=== PATIENT | female | born 1970 | race Hispanic/Latino ===

== ENCOUNTER 2020-04-27 23:42 | Emergency (ER) | payer OTHER ==
[2020-04-28] MEDS ORDERED: LORAZEPAM 1 MG TABLET ONE (00:19)
[2020-04-28 00:26] LABS: APPEARANCE,URINE Clear (CLEAR); BILIRUBIN,URINE Negative (NEGATIVE); COLOR,URINE Yellow (YELLOW); GLUCOSE, URINE (UA) Negative (NEGATIVE); KETONES,URINE Negative (NEGATIVE); LEUKOCYTE ESTERASE ,URINE Moderate (NEGATIVE); NITRATE,URINE Negative (NEGATIVE); OCCULT BLOOD,URINE Trace (NEGATIVE); PH,URINE 5.5 (5.0-8.0); PROTEIN,URINE Negative (NEGATIVE); UROBILINOGEN,URINE 0.2 mg/dL (0.2-1.0)
[2020-04-28 00:29] LABS: BASOPHILS % (AUTO) 0.4 % (0.0-5.0); EOSINOPHILS % (AUTO) 1.2 % (0.0-8.0); HEMATOCRIT 39.7 % (36-48); LYMPHOCYTES % (AUTO) 30.9 % (21.0-51.0); MEAN CORPUSCULAR HEMOGLOBIN 29.3 pg (27.0-33.0); MEAN CORPUSCULAR HGB CONC 33.2 g/dL (32.0-36.0); MEAN CORPUSCULAR VOLUME 88.2 fL (79-99); MONOCYTES % (AUTO) 9.5 % (3.0-13.0); NEUTROPHILS % (AUTO) 57.7 % (40.0-77.0); PLATELET COUNT (AUTO) 259 K/uL (130-400); RED CELL DISTRIBUTION WIDTH 13.4 % (11.0-15.5); WHITE BLOOD COUNT (AUTO) 7.4 K/uL (4.8-10.8)
[2020-04-28 00:40] LABS: CREATININE 0.8 mg/dL (0.5-1.5); POTASSIUM 3.2 mmol/L (3.5-5.1)
[2020-04-28 00:45] LABS: ALBUMIN 3.9 g/dL (3.5-5.0); BILIRUBIN,TOTAL 0.2 mg/dL (0.2-1.0)
[2020-04-28 01:00] LABS: BACTERIA,URINE None Seen /HPF (None Seen); MUCUS,URINE Few LPF (None Seen); RBC,URINE None Seen /HPF (0-1); SQUAMOUS EPITHELIAL CELL,UR Few /HPF (0-2)
== END 2020-04-28 01:49 | disposition home or self-care (01) ==
LOC: EDH 23:42
DX: I10 Essential (primary) hypertension (principal); F41.9 Anxiety disorder, unspecified
CPT/HCPCS: 36415; 80053; 81001; 85025; 87088; 93005

== ENCOUNTER 2020-11-13 16:55 | Inpatient (IN) | payer SELFPAY ==
[~2020-11-13] VITALS: Ht 157.5 cm; Wt 63.5 kg
[2020-11-13 17:43] LABS: APPEARANCE,URINE Clear (CLEAR); BILIRUBIN,URINE Negative (NEGATIVE); COLOR,URINE Yellow (YELLOW); GLUCOSE, URINE (UA) Negative (NEGATIVE); KETONES,URINE Negative (NEGATIVE); LEUKOCYTE ESTERASE ,URINE Trace (NEGATIVE); NITRATE,URINE Negative (NEGATIVE); OCCULT BLOOD,URINE Moderate (NEGATIVE); PH,URINE 6.5 (5.0-8.0); PROTEIN,URINE Negative (NEGATIVE); UROBILINOGEN,URINE 0.2 mg/dL (0.2-1.0)
[2020-11-13 17:57] LABS: WBC,URINE 0-1 /HPF (0-1)
[2020-11-13 17:58] LABS: BACTERIA,URINE Few /HPF (None Seen); MUCUS,URINE Rare LPF (None Seen); SQUAMOUS EPITHELIAL CELL,UR Few /HPF (0-2)
[2020-11-13] MEDS ORDERED: ACETAMINOPHEN 325 MG TAB ONE ×3 (18:07→22:07)
[2020-11-13 18:10] LABS: BASOPHILS % (AUTO) 0.2 % (0.0-5.0); HEMATOCRIT 38.6 % (36-48); MEAN CORPUSCULAR HEMOGLOBIN 29.5 pg (27.0-33.0); MEAN CORPUSCULAR HGB CONC 33.4 g/dL (32.0-36.0); MEAN CORPUSCULAR VOLUME 88.1 fL (79-99); MONOCYTES % (AUTO) 8.1 % (3.0-13.0); NEUTROPHILS % (AUTO) 87.2 % (40.0-77.0); PLATELET COUNT (AUTO) 278 K/uL (130-400); RED BLOOD CELL COUNT(AUTO) 4.38 MIL/uL (4.00-5.50); RED CELL DISTRIBUTION WIDTH 13.5 % (11.0-15.5); WHITE BLOOD COUNT (AUTO) 10.6 K/uL (4.8-10.8)
[2020-11-13] MEDS ORDERED: SODIUM CHLORIDE 0.9% 1000ML 2,000 ML IV ONE (18:17)
[2020-11-13 18:25] LABS: INR 1.07 (0.85-1.15); PROTHROMBIN TIME 11.6 SEC (9.6-11.6)
[2020-11-13 18:26] LABS: PARTIAL THROMBOPLASTIN TIME 28.8 SEC (26.3-35.5)
[2020-11-13 18:32] LABS: CARBON DIOXIDE 28 mmol/L (21-32); CHLORIDE 103 mmol/L (101-111); CREATININE 0.7 mg/dL (0.5-1.5); GLOMERULAR FILTR. RATE CALC 94 mL/min (>60); GLUCOSE,RANDOM 117 mg/dL (70-105); POTASSIUM 3.6 mmol/L (3.5-5.1); SODIUM SERUM 140 mmol/L (136-145); UREA NITROGEN, BLOOD 4 mg/dL (7-18)
[2020-11-13] MEDS ORDERED: SODIUM CHLORIDE 0.9% 50 ML IV ONE ×2 (18:32→21:38)
[2020-11-13] MEDS ORDERED: ZOSYN 3.375GM+NS 50ML 50 ML IV ONE ×2 (18:32→21:30)
[2020-11-13] MEDS ORDERED: IOHEXOL-350 75 ML VIAL IV ONE (18:38)
[2020-11-13 18:46] LABS: ALANINE AMINOTRANSFERASE 51 U/L (12-78); ASPARTATE AMINOTRANSFERASE 39 U/L (10-37); BILIRUBIN,TOTAL 0.4 mg/dL (0.2-1.0); CREATINE KINASE, TOTAL 22 U/L (21-232); MYOGLOBIN 13 ng/mL (10-92); TOTAL PROTEIN, SERUM 8.3 g/dL (6.0-8.3); TROPONIN I < 0.04 ng/mL (0.00-0.06)
[2020-11-13] MEDS ORDERED: DIPHENHYDRAMINE HCL 25 MG CAPSULE PO PRN (20:45)
[2020-11-13] MEDS ORDERED: LACTULOSE 20 GM/30 ML UDCUP PO PRN (20:45)
[2020-11-13] MEDS ORDERED: MAG HYDROX/AL HYDROX/SIMETH ES 30 ML SUSP UDCUP PO PRN (20:45)
[2020-11-13] MEDS ORDERED: GUAIFENESIN-DM 200/20 MG 10 ML PO PRN (20:45)
[2020-11-13] MEDS: LACTATED RINGERS 1000ML 1,000 ML IV SCH (20:45)
[2020-11-13] MEDS: ZOSYN 3.375GM+NS 50ML 50 ML IV SCH (21:00)
[2020-11-13] MEDS: FAMOTIDINE/PF 20 MG/2 ML VIAL IV SCH (21:00)
[2020-11-13] MEDS ORDERED: FAMOTIDINE/PF 20 MG/2 ML VIAL IV ONE (21:31)
[2020-11-13] MEDS ORDERED: DEXTROSE 5 % AND 0.9 % NACL 1,000 ML IV ONE (21:36)
[2020-11-13] MEDS ORDERED: IBUPROFEN 800 MG TAB ONE (23:50)
[2020-11-14] VITALS (7 sets, daily range): BP systolic 89–111; BP diastolic 54–69
[2020-11-14] MEDS ORDERED: ZOSYN 3.375GM+NS 50ML 50 ML IV ONE (01:01)
[2020-11-14] MEDS ORDERED: SODIUM CHLORIDE 0.9% 50 ML IV ONE (01:02)
[2020-11-14] MEDS: ZOSYN 3.375GM+NS 50ML 50 ML IV SCH ×3 (06:20→22:03)
[2020-11-14] MEDS: FAMOTIDINE/PF 20 MG/2 ML VIAL IV SCH ×2 (09:29→20:51)
[2020-11-14] MEDS: LACTATED RINGERS 1000ML 1,000 ML IV SCH ×3 (09:30→22:03)
[2020-11-14] MEDS: ENOXAPARIN SODIUM 40 MG/0.4 ML SYRINGE SQ SCH (09:30)
[2020-11-14] MEDS: ACETAMINOPHEN 325 MG TAB PO PRN ×2 (10:47→19:14)
[2020-11-14] MEDS: MORPHINE SULFATE 2 MG/ML 1ML SYG IV PRN ×2 (15:45→22:06)
[2020-11-14 16:04] LABS: BASOPHILS % (AUTO) 0.2 % (0.0-5.0); HEMATOCRIT 37.6 % (36-48); LYMPHOCYTES % (AUTO) 3.5 % (21.0-51.0); MEAN CORPUSCULAR HEMOGLOBIN 28.6 pg (27.0-33.0); MEAN CORPUSCULAR HGB CONC 32.4 g/dL (32.0-36.0); MEAN CORPUSCULAR VOLUME 88.3 fL (79-99); MONOCYTES % (AUTO) 3.4 % (3.0-13.0); NEUTROPHILS % (AUTO) 90.5 % (40.0-77.0); PLATELET COUNT (AUTO) 265 K/uL (130-400); RED BLOOD CELL COUNT(AUTO) 4.26 MIL/uL (4.00-5.50); RED CELL DISTRIBUTION WIDTH 13.9 % (11.0-15.5)
[2020-11-14 16:24] LABS: ALBUMIN 2.7 g/dL (3.5-5.0); BILIRUBIN,TOTAL 0.5 mg/dL (0.2-1.0); CREATININE 0.8 mg/dL (0.5-1.5); POTASSIUM 3.2 mmol/L (3.5-5.1); TOTAL PROTEIN, SERUM 7.4 g/dL (6.0-8.3)
[2020-11-14] MEDS ORDERED: MAGNESIUM CITRATE 296 ML SOLUTION PO ONE (17:05)
[2020-11-14] MEDS ORDERED: VANCOMYCIN PROTOCOL PER PHARMACY IV SCH (18:30)
[2020-11-14] MEDS ORDERED: VANCOMYCIN 1.25 GM in SODIUM CHLORIDE 0.9% 250 ML IV ONE (18:45)
[2020-11-14] MEDS ORDERED: COMPOUND IV REFRIGERATED 1 EACH IVSOLN MISC PRN (19:00)
[2020-11-14] MEDS ORDERED: LACTATED RINGERS 1000ML 1,000 ML IV SCH (20:30)
[2020-11-14] MEDS: ONDANSETRON HCL 4 MG/2 ML VIAL IV PRN (22:05)
[2020-11-15] VITALS (13 sets, daily range): BP systolic 88–114; BP diastolic 56–75
[2020-11-15] MEDS: VANCOMYCIN 750MG + NS 250 ML IV SCH ×4 (02:03→09:40)
[2020-11-15 04:33] LABS: BASOPHILS % (AUTO) 0.2 % (0.0-5.0); EOSINOPHILS % (AUTO) 0.5 % (0.0-8.0); HEMATOCRIT 35.9 % (36-48); LYMPHOCYTES % (AUTO) 6.4 % (21.0-51.0); MEAN CORPUSCULAR HEMOGLOBIN 28.5 pg (27.0-33.0); MEAN CORPUSCULAR HGB CONC 32.3 g/dL (32.0-36.0); MEAN CORPUSCULAR VOLUME 88.2 fL (79-99); MONOCYTES % (AUTO) 5.3 % (3.0-13.0); NEUTROPHILS % (AUTO) 87.1 % (40.0-77.0); PLATELET COUNT (AUTO) 208 K/uL (130-400); RED BLOOD CELL COUNT(AUTO) 4.07 MIL/uL (4.00-5.50); WHITE BLOOD COUNT (AUTO) 12.3 K/uL (4.8-10.8)
[2020-11-15 05:00] LABS: ALBUMIN 2.4 g/dL (3.5-5.0); BILIRUBIN,TOTAL 0.4 mg/dL (0.2-1.0); CREATININE 1.1 mg/dL (0.5-1.5); POTASSIUM 3.1 mmol/L (3.5-5.1); TOTAL PROTEIN, SERUM 6.8 g/dL (6.0-8.3)
[2020-11-15 05:11] LABS: CRP QUANTITATIVE 273.2 mg/L (0.00-9.0)
[2020-11-15] MEDS: ZOSYN 3.375GM+NS 50ML 50 ML IV SCH ×3 (05:49→22:33)
[2020-11-15] MEDS: LACTATED RINGERS 1000ML 1,000 ML IV SCH ×2 (07:59→20:35)
[2020-11-15] MEDS: ENOXAPARIN SODIUM 40 MG/0.4 ML SYRINGE SQ SCH (09:00)
[2020-11-15] MEDS: FAMOTIDINE/PF 20 MG/2 ML VIAL IV SCH ×2 (09:39→20:16)
[2020-11-15] MEDS ORDERED: POTASSIUM CHLORIDE 10% ELIXIR 20 MEQ/15 ML UDCUP PO PRN (10:45)
[2020-11-15] MEDS ORDERED: LIDOCAINE HCL-MPF 1% 2ML VIAL IV PRN (10:45)
[2020-11-15] MEDS ORDERED: POTASSIUM CHLORIDE 20MEQ/100ML 100 ML IV PRN (10:45)
[2020-11-15] MEDS: POTASSIUM CHLORIDE 20 MEQ ERTAB PO PRN ×2 (11:08→23:39)
[2020-11-15] MEDS ORDERED: LACTATED RINGERS 1000ML 500 ML IV SCH (11:45)
[2020-11-15] MEDS ORDERED: MIDAZOLAM HCL 1 MG/ML 2ML VIAL ONE (13:36)
[2020-11-15] MEDS ORDERED: FENTANYL CITRATE PF 50 MCG/1 ML 2ML VIAL ONE (13:36)
[2020-11-15] MEDS: MORPHINE SULFATE 2 MG/ML 1ML SYG IV PRN (16:53)
[2020-11-15] MEDS ORDERED: COMPOUND IV REFRIGERATED 1 EACH IVSOLN MISC PRN (17:00)
[2020-11-15] MEDS ORDERED: VANCOMYCIN 750MG + NS 250 ML IV SCH ×2 (20:00)
[2020-11-15] MEDS: MORPHINE SULFATE 4 MG/1ML SYG IV PRN (21:12)
[2020-11-15] MEDS: ACETAMINOPHEN 325 MG TAB PO PRN (23:37)
[2020-11-16 00:01] VITALS: BP 128/74
[2020-11-16] MEDS ORDERED: MAGNESIUM 2GM PREMIX 50ML 50 ML IV PRN (00:45)
[2020-11-16] MEDS: LACTATED RINGERS 1000ML 1,000 ML IV SCH ×2 (03:14→12:18)
[2020-11-16 04:34] VITALS: BP 102/66
[2020-11-16] MEDS: ZOSYN 3.375GM+NS 50ML 50 ML IV SCH ×3 (06:03→21:18)
[2020-11-16] MEDS: ACETAMINOPHEN 325 MG TAB PO PRN ×2 (06:19→12:18)
[2020-11-16 06:23] LABS: BASOPHILS % (AUTO) 0.1 % (0.0-5.0); EOSINOPHILS % (AUTO) 0.4 % (0.0-8.0); HEMATOCRIT 32.1 % (36-48); LYMPHOCYTES % (AUTO) 8.6 % (21.0-51.0); MEAN CORPUSCULAR HEMOGLOBIN 29.1 pg (27.0-33.0); MEAN CORPUSCULAR VOLUME 88.2 fL (79-99); MONOCYTES % (AUTO) 6.6 % (3.0-13.0); NEUTROPHILS % (AUTO) 83.5 % (40.0-77.0); PLATELET COUNT (AUTO) 248 K/uL (130-400); RED BLOOD CELL COUNT(AUTO) 3.64 MIL/uL (4.00-5.50); RED CELL DISTRIBUTION WIDTH 14.3 % (11.0-15.5); WHITE BLOOD COUNT (AUTO) 13.5 K/uL (4.8-10.8)
[2020-11-16 06:47] LABS: ALBUMIN 1.9 g/dL (3.5-5.0); BILIRUBIN,TOTAL 0.3 mg/dL (0.2-1.0); CREATININE 1.7 mg/dL (0.5-1.5); POTASSIUM 3.5 mmol/L (3.5-5.1)
[2020-11-16 07:14] LABS: CRP QUANTITATIVE 281.3 mg/L (0.00-9.0)
[2020-11-16] MEDS: FAMOTIDINE/PF 20 MG/2 ML VIAL IV SCH ×2 (09:40→21:18)
[2020-11-16] MEDS: LINEZOLID 600 MG/ISO-OSM 300 ML IV SCH ×2 (09:40→21:29)
[2020-11-16] MEDS: ENOXAPARIN SODIUM 40 MG/0.4 ML SYRINGE SQ SCH (09:40)
[2020-11-16 10:36] VITALS: BP 97/63
[2020-11-16 12:15] VITALS: BP 103/67
[2020-11-16] MEDS: MIDODRINE HCL 5 MG TABLET PO SCH ×2 (15:02→21:18)
[2020-11-16 17:44] VITALS: BP 130/73
[2020-11-16 20:00] VITALS: BP 106/59
[2020-11-17] VITALS (7 sets, daily range): BP systolic 107–137; BP diastolic 67–86
[2020-11-17] MEDS: MORPHINE SULFATE 4 MG/1ML SYG IV PRN ×2 (00:12→09:36)
[2020-11-17] MEDS: LACTATED RINGERS 1000ML 1,000 ML IV SCH ×2 (00:28→16:30)
[2020-11-17] MEDS: ONDANSETRON HCL 4 MG/2 ML VIAL IV PRN (03:44)
[2020-11-17] MEDS: ZOSYN 3.375GM+NS 50ML 50 ML IV SCH ×3 (04:50→21:59)
[2020-11-17 06:00] LABS: CREATININE,URINE RANDOM 27 mg/dL (30-135); SODIUM,URINE RANDOM 81 mmol/l (40-220)
[2020-11-17 07:31] LABS: BASOPHILS % (AUTO) 0.2 % (0.0-5.0); EOSINOPHILS % (AUTO) 0.2 % (0.0-8.0); HEMATOCRIT 30.7 % (36-48); LYMPHOCYTES % (AUTO) 11.1 % (21.0-51.0); MEAN CORPUSCULAR HEMOGLOBIN 29.3 pg (27.0-33.0); MEAN CORPUSCULAR HGB CONC 33.6 g/dL (32.0-36.0); MEAN CORPUSCULAR VOLUME 87.2 fL (79-99); MONOCYTES % (AUTO) 5.6 % (3.0-13.0); NEUTROPHILS % (AUTO) 82.3 % (40.0-77.0); PLATELET COUNT (AUTO) 315 K/uL (130-400); RED BLOOD CELL COUNT(AUTO) 3.52 MIL/uL (4.00-5.50); RED CELL DISTRIBUTION WIDTH 14.3 % (11.0-15.5); WHITE BLOOD COUNT (AUTO) 13.5 K/uL (4.8-10.8)
[2020-11-17 07:56] LABS: % IRON SATURATION 12.1 % (22-44)
[2020-11-17 07:57] LABS: ALBUMIN 1.9 g/dL (3.5-5.0); BILIRUBIN,TOTAL 0.4 mg/dL (0.2-1.0); CREATININE 1.5 mg/dL (0.5-1.5); CRP QUANTITATIVE 172.5 mg/L (0.00-9.0); MAGNESIUM 2.1 mg/dL (1.80-2.40); POTASSIUM 3.5 mmol/L (3.5-5.1); TOTAL PROTEIN, SERUM 6.1 g/dL (6.0-8.3)
[2020-11-17] MEDS: MIDODRINE HCL 5 MG TABLET PO SCH ×3 (08:02→22:40)
[2020-11-17] MEDS: ENOXAPARIN SODIUM 40 MG/0.4 ML SYRINGE SQ SCH (08:03)
[2020-11-17] MEDS ORDERED: COMPOUND IV MISC 1 EACH IVSOLN MISC PRN (09:00)
[2020-11-17] MEDS: FAMOTIDINE/PF 20 MG/2 ML VIAL IV SCH ×2 (09:36→21:59)
[2020-11-17] MEDS: ACETAMINOPHEN 325 MG TAB PO PRN (10:11)
[2020-11-17] MEDS: LINEZOLID 600 MG/ISO-OSM 300 ML IV SCH ×2 (10:14→22:00)
[2020-11-17] MEDS: IRON SUCROSE COMPLEX 100 MG in SODIUM CHLORIDE 0.9% 50 ML IV SCH (10:15)
[2020-11-17] MEDS: TRAMADOL HCL 50 MG TABLET PO PRN (16:38)
[2020-11-18] MEDS: TRAMADOL HCL 50 MG TABLET PO PRN ×2 (03:01→13:39)
[2020-11-18] MEDS: LACTATED RINGERS 1000ML 1,000 ML IV SCH ×2 (03:01→10:18)
[2020-11-18 04:00] VITALS: BP 123/78
[2020-11-18] MEDS: ZOSYN 3.375GM+NS 50ML 50 ML IV SCH ×3 (05:24→21:30)
[2020-11-18 05:43] LABS: BASOPHILS % (AUTO) 0.2 % (0.0-5.0); EOSINOPHILS % (AUTO) 0.5 % (0.0-8.0); HEMATOCRIT 32.3 % (36-48); LYMPHOCYTES % (AUTO) 15.2 % (21.0-51.0); MEAN CORPUSCULAR HGB CONC 32.2 g/dL (32.0-36.0); MEAN CORPUSCULAR VOLUME 87.1 fL (79-99); MONOCYTES % (AUTO) 8.1 % (3.0-13.0); NEUTROPHILS % (AUTO) 75.3 % (40.0-77.0); PLATELET COUNT (AUTO) 391 K/uL (130-400); RED BLOOD CELL COUNT(AUTO) 3.71 MIL/uL (4.00-5.50); RED CELL DISTRIBUTION WIDTH 14.1 % (11.0-15.5); WHITE BLOOD COUNT (AUTO) 10.9 K/uL (4.8-10.8)
[2020-11-18 06:15] LABS: BILIRUBIN,TOTAL 0.4 mg/dL (0.2-1.0); CREATININE 1.4 mg/dL (0.5-1.5); MAGNESIUM 2.2 mg/dL (1.80-2.40); POTASSIUM 3.5 mmol/L (3.5-5.1); TOTAL PROTEIN, SERUM 6.5 g/dL (6.0-8.3)
[2020-11-18] MEDS: POTASSIUM CHLORIDE 20 MEQ ERTAB PO PRN (06:54)
[2020-11-18 08:49] VITALS: BP 118/77
[2020-11-18] MEDS: LINEZOLID 600 MG/ISO-OSM 300 ML IV SCH ×2 (10:19→21:54)
[2020-11-18] MEDS: IRON SUCROSE COMPLEX 100 MG in SODIUM CHLORIDE 0.9% 50 ML IV SCH (10:20)
[2020-11-18] MEDS: FAMOTIDINE/PF 20 MG/2 ML VIAL IV SCH ×2 (10:21→21:30)
[2020-11-18] MEDS: MIDODRINE HCL 5 MG TABLET PO SCH ×3 (10:21→21:30)
[2020-11-18] MEDS: ENOXAPARIN SODIUM 40 MG/0.4 ML SYRINGE SQ SCH (10:22)
[2020-11-18 11:44] VITALS: BP 114/77
[2020-11-18 16:30] VITALS: BP 133/90
[2020-11-18] MEDS ORDERED: HYDROCODONE/ACETAMINOPHEN 5/325 MG TAB PO ONE (17:25)
[2020-11-18 20:05] VITALS: BP 129/83
[2020-11-18] MEDS: ONDANSETRON HCL 4 MG/2 ML VIAL IV PRN (21:30)
[2020-11-18 23:52] VITALS: BP 135/86
[2020-11-19] MEDS ORDERED: LACTATED RINGERS 1000ML 0 ML IV ONE (00:11)
[2020-11-19 04:00] VITALS: BP 126/71
[2020-11-19] MEDS: ZOSYN 3.375GM+NS 50ML 50 ML IV SCH ×3 (04:10→21:58)
[2020-11-19] MEDS: TRAMADOL HCL 50 MG TABLET PO PRN ×2 (04:11→21:43)
[2020-11-19 05:43] LABS: BASOPHILS % (AUTO) 0.2 % (0.0-5.0); EOSINOPHILS % (AUTO) 0.6 % (0.0-8.0); HEMATOCRIT 32.5 % (36-48); LYMPHOCYTES % (AUTO) 10.7 % (21.0-51.0); MEAN CORPUSCULAR HEMOGLOBIN 28.8 pg (27.0-33.0); MEAN CORPUSCULAR HGB CONC 32.6 g/dL (32.0-36.0); MEAN CORPUSCULAR VOLUME 88.3 fL (79-99); MONOCYTES % (AUTO) 8.5 % (3.0-13.0); NEUTROPHILS % (AUTO) 79.3 % (40.0-77.0); PLATELET COUNT (AUTO) 434 K/uL (130-400); RED BLOOD CELL COUNT(AUTO) 3.68 MIL/uL (4.00-5.50); WHITE BLOOD COUNT (AUTO) 11.6 K/uL (4.8-10.8)
[2020-11-19 05:59] LABS: CREATININE 1.3 mg/dL (0.5-1.5); POTASSIUM 3.7 mmol/L (3.5-5.1)
[2020-11-19] MEDS: POTASSIUM CHLORIDE 20 MEQ ERTAB PO PRN (06:46)
[2020-11-19] MEDS: FAMOTIDINE/PF 20 MG/2 ML VIAL IV SCH ×2 (08:48→21:43)
[2020-11-19] MEDS: MIDODRINE HCL 5 MG TABLET PO SCH (08:48)
[2020-11-19] MEDS: LINEZOLID 600 MG/ISO-OSM 300 ML IV SCH ×2 (08:48→21:43)
[2020-11-19] MEDS: ENOXAPARIN SODIUM 40 MG/0.4 ML SYRINGE SQ SCH (08:48)
[2020-11-19] MEDS: IRON SUCROSE COMPLEX 100 MG in SODIUM CHLORIDE 0.9% 50 ML IV SCH (09:00)
[2020-11-19 09:56] VITALS: BP 127/79
[2020-11-19 12:05] VITALS: BP 134/78
[2020-11-19 17:08] VITALS: BP 126/84
[2020-11-19 20:00] VITALS: BP 130/77
[2020-11-20] VITALS: BP 132/79
[2020-11-20 04:00] VITALS: BP 123/75
[2020-11-20 04:45] LABS: BASOPHILS % (AUTO) 0.2 % (0.0-5.0); EOSINOPHILS % (AUTO) 1.2 % (0.0-8.0); HEMATOCRIT 29.9 % (36-48); LYMPHOCYTES % (AUTO) 12.8 % (21.0-51.0); MEAN CORPUSCULAR HEMOGLOBIN 29.1 pg (27.0-33.0); MEAN CORPUSCULAR HGB CONC 32.8 g/dL (32.0-36.0); MEAN CORPUSCULAR VOLUME 88.7 fL (79-99); MONOCYTES % (AUTO) 9.4 % (3.0-13.0); NEUTROPHILS % (AUTO) 75.8 % (40.0-77.0); PLATELET COUNT (AUTO) 418 K/uL (130-400); RED BLOOD CELL COUNT(AUTO) 3.37 MIL/uL (4.00-5.50); RED CELL DISTRIBUTION WIDTH 13.9 % (11.0-15.5); WHITE BLOOD COUNT (AUTO) 9.9 K/uL (4.8-10.8)
[2020-11-20 04:58] LABS: INR 1.08 (0.85-1.15); PROTHROMBIN TIME 11.7 SEC (9.6-11.6)
[2020-11-20 04:59] LABS: BILIRUBIN,TOTAL 0.4 mg/dL (0.2-1.0); CREATININE 1.4 mg/dL (0.5-1.5); POTASSIUM 3.5 mmol/L (3.5-5.1); TOTAL PROTEIN, SERUM 6.4 g/dL (6.0-8.3)
[2020-11-20 05:00] LABS: PARTIAL THROMBOPLASTIN TIME 25.6 SEC (26.3-35.5)
[2020-11-20] MEDS: ZOSYN 3.375GM+NS 50ML 50 ML IV SCH ×3 (05:14→21:33)
[2020-11-20] MEDS: LINEZOLID 600 MG/ISO-OSM 300 ML IV SCH ×2 (07:50→21:33)
[2020-11-20] MEDS: TRAMADOL HCL 50 MG TABLET PO PRN (07:52)
[2020-11-20] MEDS: ENOXAPARIN SODIUM 40 MG/0.4 ML SYRINGE SQ SCH (09:00)
[2020-11-20 10:05] VITALS: BP 131/74
[2020-11-20] MEDS: IRON SUCROSE COMPLEX 100 MG in SODIUM CHLORIDE 0.9% 50 ML IV SCH (10:05)
[2020-11-20] MEDS: FAMOTIDINE/PF 20 MG/2 ML VIAL IV SCH ×2 (10:05→21:33)
[2020-11-20 12:14] VITALS: BP 133/83
[2020-11-20] MEDS: POTASSIUM CHLORIDE 20 MEQ ERTAB PO PRN ×2 (13:52→16:30)
[2020-11-20 16:50] VITALS: BP 126/75
[2020-11-20 20:00] VITALS: BP 125/81
[2020-11-21] VITALS (7 sets, daily range): BP systolic 111–127; BP diastolic 71–84
[2020-11-21] MEDS: ZOSYN 3.375GM+NS 50ML 50 ML IV SCH ×3 (05:10→20:46)
[2020-11-21 05:39] LABS: BASOPHILS % (AUTO) 0.2 % (0.0-5.0); EOSINOPHILS % (AUTO) 1.4 % (0.0-8.0); HEMATOCRIT 30.6 % (36-48); LYMPHOCYTES % (AUTO) 15.3 % (21.0-51.0); MEAN CORPUSCULAR HEMOGLOBIN 29.4 pg (27.0-33.0); MONOCYTES % (AUTO) 10.4 % (3.0-13.0); NEUTROPHILS % (AUTO) 71.9 % (40.0-77.0); PLATELET COUNT (AUTO) 496 K/uL (130-400); RED BLOOD CELL COUNT(AUTO) 3.44 MIL/uL (4.00-5.50); WHITE BLOOD COUNT (AUTO) 9.1 K/uL (4.8-10.8)
[2020-11-21 05:53] LABS: ALBUMIN 2.1 g/dL (3.5-5.0); BILIRUBIN,TOTAL 0.4 mg/dL (0.2-1.0); CREATININE 1.3 mg/dL (0.5-1.5); POTASSIUM 3.4 mmol/L (3.5-5.1); TOTAL PROTEIN, SERUM 6.5 g/dL (6.0-8.3)
[2020-11-21] MEDS: FAMOTIDINE/PF 20 MG/2 ML VIAL IV SCH ×2 (09:27→20:46)
[2020-11-21] MEDS: LINEZOLID 600 MG/ISO-OSM 300 ML IV SCH (09:27)
[2020-11-21] MEDS: IRON SUCROSE COMPLEX 100 MG in SODIUM CHLORIDE 0.9% 50 ML IV SCH (09:39)
[2020-11-21] MEDS: ENOXAPARIN SODIUM 40 MG/0.4 ML SYRINGE SQ SCH (09:39)
[2020-11-22 04:02] VITALS: BP 138/82
[2020-11-22] MEDS: ZOSYN 3.375GM+NS 50ML 50 ML IV SCH ×3 (05:18→21:47)
[2020-11-22 05:53] LABS: BASOPHILS % (AUTO) 0.1 % (0.0-5.0); HEMATOCRIT 31.5 % (36-48); LYMPHOCYTES % (AUTO) 14.6 % (21.0-51.0); MEAN CORPUSCULAR HGB CONC 31.7 g/dL (32.0-36.0); MEAN CORPUSCULAR VOLUME 88.2 fL (79-99); MONOCYTES % (AUTO) 11.1 % (3.0-13.0); NEUTROPHILS % (AUTO) 71.5 % (40.0-77.0); PLATELET COUNT (AUTO) 498 K/uL (130-400); RED BLOOD CELL COUNT(AUTO) 3.57 MIL/uL (4.00-5.50); WHITE BLOOD COUNT (AUTO) 7.6 K/uL (4.8-10.8)
[2020-11-22 06:08] LABS: ALBUMIN 2.3 g/dL (3.5-5.0); BILIRUBIN,TOTAL 0.3 mg/dL (0.2-1.0); CREATININE 1.3 mg/dL (0.5-1.5); MAGNESIUM 2.1 mg/dL (1.80-2.40); POTASSIUM 3.6 mmol/L (3.5-5.1); TOTAL PROTEIN, SERUM 6.9 g/dL (6.0-8.3)
[2020-11-22 07:30] VITALS: BP 121/82
[2020-11-22] MEDS: IRON SUCROSE COMPLEX 100 MG in SODIUM CHLORIDE 0.9% 50 ML IV SCH (10:06)
[2020-11-22] MEDS: FAMOTIDINE/PF 20 MG/2 ML VIAL IV SCH ×2 (10:06→21:47)
[2020-11-22] MEDS: ENOXAPARIN SODIUM 40 MG/0.4 ML SYRINGE SQ SCH (10:07)
[2020-11-22 11:45] VITALS: BP 114/73
[2020-11-22 16:00] VITALS: BP 116/77
[2020-11-22 19:50] VITALS: BP 111/67
[2020-11-22] MEDS ORDERED: TRAMADOL HCL 50 MG TABLET ONE (22:31)
[2020-11-22 23:48] VITALS: BP 121/68
[2020-11-23] MEDS ORDERED: HYDROMORPHONE HCL 0.5 MG/0.5 ML ML IVP PRN (01:45)
[2020-11-23 04:02] VITALS: BP 111/68
[2020-11-23] MEDS: ZOSYN 3.375GM+NS 50ML 50 ML IV SCH ×3 (04:37→21:24)
[2020-11-23 05:31] LABS: HEMATOCRIT 32.4 % (36-48); MEAN CORPUSCULAR HGB CONC 31.5 g/dL (32.0-36.0); RED BLOOD CELL COUNT(AUTO) 3.64 MIL/uL (4.00-5.50); RED CELL DISTRIBUTION WIDTH 14.1 % (11.0-15.5); WHITE BLOOD COUNT (AUTO) 8.4 K/uL (4.8-10.8)
[2020-11-23 05:44] LABS: CREATININE 1.3 mg/dL (0.5-1.5); POTASSIUM 3.8 mmol/L (3.5-5.1)
[2020-11-23 07:30] VITALS: BP 130/83
[2020-11-23] MEDS: IRON SUCROSE COMPLEX 100 MG in SODIUM CHLORIDE 0.9% 50 ML IV SCH (09:00)
[2020-11-23] MEDS: ENOXAPARIN SODIUM 40 MG/0.4 ML SYRINGE SQ SCH (11:06)
[2020-11-23] MEDS: FAMOTIDINE/PF 20 MG/2 ML VIAL IV SCH ×2 (11:06→21:24)
[2020-11-23 11:30] VITALS: BP 115/76
[2020-11-23 16:00] VITALS: BP 118/78
[2020-11-23 19:47] VITALS: BP 126/85
[2020-11-23 23:17] VITALS: BP 121/80
[2020-11-24] MEDS: TRAMADOL HCL 50 MG TABLET PO PRN ×2 (02:15→11:21)
[2020-11-24 04:34] VITALS: BP 122/82
[2020-11-24] MEDS: ZOSYN 3.375GM+NS 50ML 50 ML IV SCH ×3 (05:38→21:27)
[2020-11-24 06:49] LABS: BASOPHILS % (AUTO) 0.4 % (0.0-5.0); EOSINOPHILS % (AUTO) 1.3 % (0.0-8.0); HEMATOCRIT 36.3 % (36-48); MEAN CORPUSCULAR HEMOGLOBIN 28.4 pg (27.0-33.0); MEAN CORPUSCULAR HGB CONC 31.7 g/dL (32.0-36.0); MEAN CORPUSCULAR VOLUME 89.6 fL (79-99); MONOCYTES % (AUTO) 11.4 % (3.0-13.0); NEUTROPHILS % (AUTO) 69.1 % (40.0-77.0); PLATELET COUNT (AUTO) 598 K/uL (130-400); RED BLOOD CELL COUNT(AUTO) 4.05 MIL/uL (4.00-5.50); RED CELL DISTRIBUTION WIDTH 14.1 % (11.0-15.5); WHITE BLOOD COUNT (AUTO) 9.8 K/uL (4.8-10.8)
[2020-11-24 07:02] LABS: ALBUMIN 2.9 g/dL (3.5-5.0); BILIRUBIN,DIRECT 0.1 mg/dL (0.0-0.3); BILIRUBIN,TOTAL 0.3 mg/dL (0.2-1.0); CREATININE 1.2 mg/dL (0.5-1.5); MAGNESIUM 2.1 mg/dL (1.80-2.40); POTASSIUM 4.1 mmol/L (3.5-5.1); TOTAL PROTEIN, SERUM 8.1 g/dL (6.0-8.3)
[2020-11-24 08:58] VITALS: BP 131/84
[2020-11-24] MEDS: ENOXAPARIN SODIUM 40 MG/0.4 ML SYRINGE SQ SCH (11:18)
[2020-11-24] MEDS: FAMOTIDINE/PF 20 MG/2 ML VIAL IV SCH ×2 (11:18→21:29)
[2020-11-24 11:56] VITALS: BP 120/77
[2020-11-24 16:56] VITALS: BP 128/82
[2020-11-24 20:00] VITALS: BP 131/82
[2020-11-25] VITALS: BP 121/78
[2020-11-25 04:00] VITALS: BP 113/76
[2020-11-25] MEDS: ZOSYN 3.375GM+NS 50ML 50 ML IV SCH ×3 (05:09→20:30)
[2020-11-25 05:44] LABS: BASOPHILS % (AUTO) 0.3 % (0.0-5.0); EOSINOPHILS % (AUTO) 1.2 % (0.0-8.0); HEMATOCRIT 33.1 % (36-48); LYMPHOCYTES % (AUTO) 15.1 % (21.0-51.0); MEAN CORPUSCULAR HGB CONC 32.6 g/dL (32.0-36.0); MONOCYTES % (AUTO) 11.6 % (3.0-13.0); NEUTROPHILS % (AUTO) 70.5 % (40.0-77.0); PLATELET COUNT (AUTO) 474 K/uL (130-400); RED BLOOD CELL COUNT(AUTO) 3.72 MIL/uL (4.00-5.50); WHITE BLOOD COUNT (AUTO) 9.7 K/uL (4.8-10.8)
[2020-11-25 05:59] LABS: ALBUMIN 2.7 g/dL (3.5-5.0); BILIRUBIN,TOTAL 0.3 mg/dL (0.2-1.0); CREATININE 1.4 mg/dL (0.5-1.5); POTASSIUM 3.8 mmol/L (3.5-5.1); TOTAL PROTEIN, SERUM 7.4 g/dL (6.0-8.3)
[2020-11-25 08:00] VITALS: BP 128/82
[2020-11-25] MEDS: FAMOTIDINE/PF 20 MG/2 ML VIAL IV SCH ×2 (10:26→20:30)
[2020-11-25] MEDS: ENOXAPARIN SODIUM 40 MG/0.4 ML SYRINGE SQ SCH (10:27)
[2020-11-25 12:00] VITALS: BP 128/83
[2020-11-25 16:00] VITALS: BP 130/83
[2020-11-25 20:00] VITALS: BP 137/90
[2020-11-25] MEDS: TRAMADOL HCL 50 MG TABLET PO PRN (20:43)
[2020-11-26] VITALS: BP 114/65
[2020-11-26 04:00] VITALS: BP 112/65
[2020-11-26] MEDS: ZOSYN 3.375GM+NS 50ML 50 ML IV SCH ×3 (04:57→20:35)
[2020-11-26 05:46] LABS: BASOPHILS % (AUTO) 0.4 % (0.0-5.0); EOSINOPHILS % (AUTO) 1.6 % (0.0-8.0); HEMATOCRIT 34.6 % (36-48); LYMPHOCYTES % (AUTO) 17.4 % (21.0-51.0); MEAN CORPUSCULAR HEMOGLOBIN 28.3 pg (27.0-33.0); MEAN CORPUSCULAR HGB CONC 31.8 g/dL (32.0-36.0); MEAN CORPUSCULAR VOLUME 88.9 fL (79-99); MONOCYTES % (AUTO) 10.3 % (3.0-13.0); NEUTROPHILS % (AUTO) 68.7 % (40.0-77.0); PLATELET COUNT (AUTO) 491 K/uL (130-400); RED BLOOD CELL COUNT(AUTO) 3.89 MIL/uL (4.00-5.50); RED CELL DISTRIBUTION WIDTH 14.3 % (11.0-15.5); WHITE BLOOD COUNT (AUTO) 9.6 K/uL (4.8-10.8)
[2020-11-26 05:58] LABS: CREATININE 1.3 mg/dL (0.5-1.5); POTASSIUM 3.9 mmol/L (3.5-5.1)
[2020-11-26 07:30] VITALS: BP 108/76
[2020-11-26] MEDS: FAMOTIDINE/PF 20 MG/2 ML VIAL IV SCH ×2 (10:07→20:35)
[2020-11-26] MEDS: ENOXAPARIN SODIUM 40 MG/0.4 ML SYRINGE SQ SCH (10:14)
[2020-11-26 11:00] VITALS: BP 104/66
[2020-11-26 16:00] VITALS: BP 110/69
[2020-11-26] MEDS: TRAMADOL HCL 50 MG TABLET PO PRN (16:54)
[2020-11-26 20:00] VITALS: BP 124/81
[2020-11-26] MEDS: ACETAMINOPHEN 325 MG TAB PO PRN (20:35)
[2020-11-27] VITALS: BP 112/68
[2020-11-27 04:00] VITALS: BP 114/77
[2020-11-27] MEDS: ZOSYN 3.375GM+NS 50ML 50 ML IV SCH ×2 (04:59→13:20)
[2020-11-27 06:36] LABS: BASOPHILS % (AUTO) 0.7 % (0.0-5.0); EOSINOPHILS % (AUTO) 1.6 % (0.0-8.0); HEMATOCRIT 33.7 % (36-48); MEAN CORPUSCULAR VOLUME 90.3 fL (79-99); MONOCYTES % (AUTO) 8.9 % (3.0-13.0); NEUTROPHILS % (AUTO) 64.7 % (40.0-77.0); PLATELET COUNT (AUTO) 440 K/uL (130-400); RED BLOOD CELL COUNT(AUTO) 3.73 MIL/uL (4.00-5.50); RED CELL DISTRIBUTION WIDTH 14.7 % (11.0-15.5); WHITE BLOOD COUNT (AUTO) 7.5 K/uL (4.8-10.8)
[2020-11-27 06:49] LABS: CREATININE 1.4 mg/dL (0.5-1.5); POTASSIUM 3.5 mmol/L (3.5-5.1)
[2020-11-27 07:30] VITALS: BP 122/82
[2020-11-27 08:00] VITALS: BP 130/70
[2020-11-27 10:08] LABS: ALBUMIN 2.8 g/dL (3.5-5.0); BILIRUBIN,DIRECT 0.1 mg/dL (0.0-0.3); BILIRUBIN,TOTAL 0.3 mg/dL (0.2-1.0); TOTAL PROTEIN, SERUM 7.4 g/dL (6.0-8.3)
[2020-11-27 11:00] VITALS: BP 130/70
[2020-11-27] MEDS: ENOXAPARIN SODIUM 40 MG/0.4 ML SYRINGE SQ SCH (11:07)
[2020-11-27] MEDS: FAMOTIDINE/PF 20 MG/2 ML VIAL IV SCH (11:08)
[2020-11-27] MEDS: POTASSIUM CHLORIDE 20 MEQ ERTAB PO PRN ×2 (13:21→16:43)
[2020-11-27] MEDS ORDERED: ACETAMINOPHEN-CODEINE 300/30MG TAB PO SCH (16:30)
[2020-11-27] MEDS ORDERED: OMEP20TA2 PO (16:57)
== END 2020-11-27 18:50 | disposition home or self-care (01) | DRG 862 ==
LOC: EDH 16:55 → EDHIP 16:56 → 3DH 11-14 01:04
PROVIDERS: ADMIT Family Medicine; ATTEND Family Medicine
PROC: 0F9430Z Drainage of Gallbladder with Drainage Device, Percutaneous Approach (ICD-10-PCS; principal; 2020-11-15)
DX: T81.41XA Infection following a procedure, superficial incisional surgical site, initial encounter (principal); R65.20 Severe sepsis without septic shock; A41.50 Gram-negative sepsis, unspecified; K65.1 Peritoneal abscess; L02.91 Cutaneous abscess, unspecified; N17.9 Acute kidney failure, unspecified; E44.0 Moderate protein-calorie malnutrition; J98.11 Atelectasis; Z16.24 Resistance to multiple antibiotics; E87.6 Hypokalemia; Z68.25 Body mass index [BMI] 25.0-25.9, adult; G89.29 Other chronic pain; I10 Essential (primary) hypertension; Z20.822 Contact with and (suspected) exposure to COVID-19; Z90.710 Acquired absence of both cervix and uterus; Y92.89 Other specified places as the place of occurrence of the external cause; R53.81 Other malaise; Z90.49 Acquired absence of other specified parts of digestive tract
CPT/HCPCS: 10030; 36415; 71045; 74150; 74176; 74177; 76705; 77012; 78226; 80048; 80053; 80076; 80202; 81001; 82550; 82570; 83540; 83550; 83605; 83690; 83735; 83874; 84145; 84300; 84484; 85025; 85027; 85610; 85730; 86140; 86900; 86901; 87040; 87071; 87077; 87088; 87186; 87205; 87426; 87804; 93005; 99152; 99153; A9537; G0378; J1170; J1650; J1756; J2020; J2250; J2270; J2405; J2543; J3010; J3370; J3475; J3490; J7030; J7042; J7050; J7120; Q9967; U0003

== ENCOUNTER 2021-01-07 09:34 | Emergency (ER) | payer SELFPAY ==
[~2021-01-07] VITALS: Ht 157.5 cm; Wt 54.4 kg
[~2021-01-07 09:34] MED LIST: OMEP20TA2 PO
[2021-01-07 09:39] VITALS: BP 153/97
[2021-01-07 10:04] LABS: BASOPHILS % (AUTO) 0.3 % (0.0-5.0); EOSINOPHILS % (AUTO) 0.5 % (0.0-8.0); HEMATOCRIT 42.7 % (36-48); LYMPHOCYTES % (AUTO) 18.2 % (21.0-51.0); MEAN CORPUSCULAR HEMOGLOBIN 29.2 pg (27.0-33.0); MEAN CORPUSCULAR HGB CONC 33.3 g/dL (32.0-36.0); MEAN CORPUSCULAR VOLUME 87.9 fL (79-99); MONOCYTES % (AUTO) 6.6 % (3.0-13.0); PLATELET COUNT (AUTO) 269 K/uL (130-400); RED BLOOD CELL COUNT(AUTO) 4.86 MIL/uL (4.00-5.50); RED CELL DISTRIBUTION WIDTH 15.3 % (11.0-15.5); WHITE BLOOD COUNT (AUTO) 7.4 K/uL (4.8-10.8)
[2021-01-07 10:18] LABS: INR 0.98 (0.85-1.15); PROTHROMBIN TIME 10.7 SEC (9.6-11.6)
[2021-01-07 10:20] LABS: ALBUMIN 3.8 g/dL (3.5-5.0); BILIRUBIN,TOTAL 0.4 mg/dL (0.2-1.0); CREATININE 0.8 mg/dL (0.5-1.5); POTASSIUM 3.5 mmol/L (3.5-5.1); TOTAL PROTEIN, SERUM 8.3 g/dL (6.0-8.3)
[2021-01-07] MEDS ORDERED: ALPRAZOLAM 0.25 MG TABLET PO ONE (13:00)
[2021-01-07 13:44] VITALS: BP 116/76
== END 2021-01-07 13:45 | disposition home or self-care (01) ==
LOC: EDH 09:34
DX: R07.89 Other chest pain (principal); T50.995A Adverse effect of other drugs, medicaments and biological substances, initial encounter; F32.9 Major depressive disorder, single episode, unspecified; F41.9 Anxiety disorder, unspecified; Z79.899 Other long term (current) drug therapy; Z90.49 Acquired absence of other specified parts of digestive tract; Y92.89 Other specified places as the place of occurrence of the external cause
CPT/HCPCS: 36415; 71045; 80053; 82550; 84484; 85025; 85610; 93005

== ENCOUNTER 2021-02-10 07:30 | Emergency (ER) | payer SELFPAY ==
[~2021-02-10] VITALS: Ht 157.5 cm; Wt 54.4 kg
[2021-02-10 07:32] VITALS: BP 135/88
[2021-02-10 07:33] VITALS: BP 135/88
[2021-02-10 08:51] LABS: BASOPHILS % (AUTO) 0.5 % (0.0-5.0); EOSINOPHILS % (AUTO) 0.5 % (0.0-8.0); HEMATOCRIT 41.2 % (36-48); LYMPHOCYTES % (AUTO) 19.2 % (21.0-51.0); MEAN CORPUSCULAR HEMOGLOBIN 29.2 pg (27.0-33.0); MEAN CORPUSCULAR HGB CONC 32.8 g/dL (32.0-36.0); MEAN CORPUSCULAR VOLUME 89.2 fL (79-99); MONOCYTES % (AUTO) 6.3 % (3.0-13.0); NEUTROPHILS % (AUTO) 73.3 % (40.0-77.0); PLATELET COUNT (AUTO) 272 K/uL (130-400); RED BLOOD CELL COUNT(AUTO) 4.62 MIL/uL (4.00-5.50); WHITE BLOOD COUNT (AUTO) 6.2 K/uL (4.8-10.8)
[2021-02-10 08:52] LABS: CREATININE 0.7 mg/dL (0.5-1.5); POTASSIUM 3.7 mmol/L (3.5-5.1)
[2021-02-10 08:57] LABS: BILIRUBIN,TOTAL 0.5 mg/dL (0.2-1.0); TOTAL PROTEIN, SERUM 8.1 g/dL (6.0-8.3)
[2021-02-10] MEDS: MAG/ALUM/SIMETH 30 ML UDCUP PO SCH ×2 (09:08→09:56)
[2021-02-10] MEDS ORDERED: LISI2.5T13 PO (09:31)
[2021-02-10] MEDS ORDERED: LISINOPRIL 5 MG TABLET ONE (09:58)
[2021-02-10] MEDS ORDERED: LISINOPRIL 5 MG TABLET PO SCH (10:30)
== END 2021-02-10 10:33 | disposition home or self-care (01) ==
LOC: EDH 07:30
DX: K29.70 Gastritis, unspecified, without bleeding (principal); R03.0 Elevated blood-pressure reading, without diagnosis of hypertension; Z79.899 Other long term (current) drug therapy; Z90.49 Acquired absence of other specified parts of digestive tract
CPT/HCPCS: 36415; 80053; 84484; 85025; 93005

== ENCOUNTER 2023-07-17 12:32 | Observation (INO) | payer OTHER ==
[2023-07-17] VITALS (10 sets, daily range): BP systolic 87–115; BP diastolic 53–79; PULSE 73–98; RESP 15–21; O2SAT 98
[~2023-07-17] VITALS: Ht 160 cm; Wt 54.7 kg
[~2023-07-17 12:32] MED LIST changes: +LISI2.5T13 PO
[2023-07-17 13:25] LABS: BASOPHILS # (AUTO) 0.03 K/uL (0.00-0.20); BASOPHILS % (AUTO) 0.2 % (0.0-5.0); EOSINOPHILS # (AUTO) 0.02 K/uL (0.00-0.70); EOSINOPHILS % (AUTO) 0.2 % (0.0-8.0); HEMATOCRIT 39.3 % (36-48); IMMATURE GRANULOCYTE ABSOLUTE 0.05 K/uL (0-1); LYMPHOCYTES # (AUTO) 0.8 K/uL (1.0-4.8); LYMPHOCYTES % (AUTO) 6.2 % (21.0-51.0); MEAN CORPUSCULAR HEMOGLOBIN 30.8 pg (27.0-33.0); MEAN CORPUSCULAR HGB CONC 33.3 g/dL (32.0-36.0); MEAN CORPUSCULAR VOLUME 92.3 fL (79-99); MONOCYTES # (AUTO) 0.6 K/uL (0.1-1.0); MONOCYTES % (AUTO) 5.1 % (3.0-13.0); NEUTROPHILS % (AUTO) 87.9 % (40.0-77.0); PLATELET COUNT (AUTO) 218 K/uL (130-400); RED BLOOD CELL COUNT(AUTO) 4.26 MIL/uL (4.00-5.50); RED CELL DISTRIBUTION WIDTH 13.4 % (11.0-15.5); WHITE BLOOD COUNT (AUTO) 12.5 K/uL (4.8-10.8)
[2023-07-17 13:34] LABS: CREATININE 0.7 mg/dL (0.5-1.5); POTASSIUM 3.7 mmol/L (3.5-5.1)
[2023-07-17 13:38] LABS: ALBUMIN 3.5 g/dL (3.5-5.0); BILIRUBIN,TOTAL 0.4 mg/dL (0.2-1.0); TOTAL PROTEIN, SERUM 7.5 g/dL (6.0-8.3)
[2023-07-17 13:50] LABS: B-TYPE NATRIURETIC PEPTIDE 10 pg/mL (0-100)
[2023-07-17 14:00] LABS: APPEARANCE,URINE CLEAR (CLEAR); BILIRUBIN,URINE NEGATIVE (NEGATIVE); GLUCOSE, URINE (UA) NEGATIVE (NEGATIVE); KETONES,URINE NEGATIVE (NEGATIVE); LEUKOCYTE ESTERASE ,URINE NEGATIVE Leu/uL (NEGATIVE); NITRATE,URINE NEGATIVE (NEGATIVE); PH,URINE 6.5 (5.0-8.0); PROTEIN,URINE NEGATIVE (NEGATIVE); UROBILINOGEN,URINE 0.2 mg/dL (0.2-1.0)
[2023-07-17 14:01] LABS: ADD UA MICROSCOPIC YES; COLOR,URINE LIGHT-YELLOW (YELLOW)
[2023-07-17 14:01] LABS: THYROID STIMULATING HORMONE 0.98 uIU/mL (0.36-3.74)
[2023-07-17 14:03] LABS: SQUAMOUS EPITHELIAL CELL,UR RARE /HPF (0-2); WBC,URINE 0-1 /HPF (0-1)
[2023-07-17 14:04] LABS: SARS-CoV-2, RNA, NAAT NEGATIVE SARS CoV-2 (NEGATIVE)
[2023-07-17] MEDS ORDERED: ONDANSETRON 4MG INJ IVP PRN ×2 (15:30)
[2023-07-17] MEDS ORDERED: ACETAMINOPHEN 325 MG TAB PO ONE (15:30)
[2023-07-17 15:50] LABS: AMPHET/METH SCREEN,URINE NEGATIVE (NEGATIVE); BARBITURATE SCREEN, URINE NEGATIVE (NEGATIVE); BENZODIAZEPINES SCREEN,URINE NEGATIVE (NEGATIVE); CANNABINOID SCREEN,URINE NEGATIVE (NEGATIVE); COCAINE SCREEN,URINE NEGATIVE (NEGATIVE); OPIATE SCREEN,URINE NEGATIVE (NEGATIVE); PHENCYCLIDINE SCREEN,URINE NEGATIVE (NEGATIVE)
[2023-07-17] MEDS: 0.9%NACL 1000ML 1,000 ML IV SCH (16:15)
[2023-07-17] MEDS: PANTOPRAZOLE 40 MG/VIAL IVP SCH (16:15)
[2023-07-17 17:53] LABS: INFLUENZA TYPE A Negative For Type A (NEGATIVE); INFLUENZA TYPE B Negative For Type B (NEGATIVE)
[2023-07-17] MEDS ORDERED: ATOR20TA65 PO (20:54)
[2023-07-17] MEDS ORDERED: BUSP7.5T7 PO (20:54)
[2023-07-17] MEDS: MELATONIN 5 MG TABLET PO SCH (20:56)
[2023-07-17] MEDS ORDERED: TRAZODONE HCL 50 MG TAB PO SCH (22:30)
[2023-07-18] VITALS (23 sets, daily range): BP systolic 88–110; BP diastolic 46–70; PULSE 70–88; RESP 9–23; TEMP 98.2; O2SAT 97–98
[2023-07-18] MEDS: ACETAMINOPHEN 500 MG TABLET PO PRN ×2 (00:36→20:04)
[2023-07-18 04:51] LABS: BASOPHILS # (AUTO) 0.03 K/uL (0.00-0.20); BASOPHILS % (AUTO) 0.4 % (0.0-5.0); EOSINOPHILS # (AUTO) 0.07 K/uL (0.00-0.70); EOSINOPHILS % (AUTO) 0.9 % (0.0-8.0); HEMATOCRIT 34.1 % (36-48); IMMATURE GRANULOCYTE ABSOLUTE 0.03 K/uL (0-1); LYMPHOCYTES # (AUTO) 1.5 K/uL (1.0-4.8); LYMPHOCYTES % (AUTO) 17.8 % (21.0-51.0); MEAN CORPUSCULAR HEMOGLOBIN 30.4 pg (27.0-33.0); MEAN CORPUSCULAR VOLUME 89.5 fL (79-99); MONOCYTES # (AUTO) 0.7 K/uL (0.1-1.0); MONOCYTES % (AUTO) 8.4 % (3.0-13.0); NEUTROPHILS # (AUTO) 5.9 K/uL (1.8-7.7); NEUTROPHILS % (AUTO) 72.1 % (40.0-77.0); PLATELET COUNT (AUTO) 203 K/uL (130-400); RED BLOOD CELL COUNT(AUTO) 3.81 MIL/uL (4.00-5.50); RED CELL DISTRIBUTION WIDTH 13.5 % (11.0-15.5); WHITE BLOOD COUNT (AUTO) 8.2 K/uL (4.8-10.8)
[2023-07-18 05:12] LABS: ALBUMIN 3.1 g/dL (3.5-5.0); BILIRUBIN,TOTAL 0.4 mg/dL (0.2-1.0); CREATININE 0.7 mg/dL (0.5-1.5); POTASSIUM 3.7 mmol/L (3.5-5.1); TOTAL PROTEIN, SERUM 6.6 g/dL (6.0-8.3)
[2023-07-18] MEDS ORDERED: FLUTICASONE PROPIONATE 50MCG/SPRAY 16 GM BOTTLE EN PRN ×2 (05:30→07:00)
[2023-07-18 07:38] LABS: % IRON SATURATION 18.4 % (22-44)
[2023-07-18] MEDS: PANTOPRAZOLE 40 MG/VIAL IVP SCH (15:39)
[2023-07-18] MEDS: 0.9%NACL 1000ML 1,000 ML IV SCH (15:40)
[2023-07-18] MEDS ORDERED: KETOROLAC 30MG VIAL (30MG/ML) IVP ONE (19:30)
[2023-07-18] MEDS: MELATONIN 5 MG TABLET PO SCH (20:03)
[2023-07-18] MEDS ORDERED: TRAZODONE HCL 50 MG TAB PO SCH (21:00)
[2023-07-18] MEDS ORDERED: ZOLPIDEM TARTRATE 5 MG TAB PO PRN (22:30)
[2023-07-19 00:36] VITALS: BP 102/66; PULSE 90; RESP 18
[2023-07-19 03:33] LABS: BASOPHILS # (AUTO) 0.03 K/uL (0.00-0.20); BASOPHILS % (AUTO) 0.4 % (0.0-5.0); EOSINOPHILS # (AUTO) 0.08 K/uL (0.00-0.70); HEMATOCRIT 33.3 % (36-48); IMMATURE GRANULOCYTE ABSOLUTE 0.03 K/uL (0-1); LYMPHOCYTES % (AUTO) 24.2 % (21.0-51.0); MEAN CORPUSCULAR HEMOGLOBIN 31.2 pg (27.0-33.0); MEAN CORPUSCULAR HGB CONC 33.6 g/dL (32.0-36.0); MEAN CORPUSCULAR VOLUME 92.8 fL (79-99); MONOCYTES # (AUTO) 0.9 K/uL (0.1-1.0); MONOCYTES % (AUTO) 10.7 % (3.0-13.0); NEUTROPHILS # (AUTO) 5.2 K/uL (1.8-7.7); NEUTROPHILS % (AUTO) 63.3 % (40.0-77.0); PLATELET COUNT (AUTO) 188 K/uL (130-400); RED BLOOD CELL COUNT(AUTO) 3.59 MIL/uL (4.00-5.50); RED CELL DISTRIBUTION WIDTH 13.6 % (11.0-15.5); WHITE BLOOD COUNT (AUTO) 8.2 K/uL (4.8-10.8)
[2023-07-19 03:45] LABS: CREATININE 0.8 mg/dL (0.5-1.5); PHOSPHORUS 4.3 mg/dL (2.5-4.9); POTASSIUM 3.7 mmol/L (3.5-5.1)
[2023-07-19 04:46] VITALS: BP 104/65; PULSE 78; RESP 18
[2023-07-19 07:00] VITALS: O2SAT 98
[2023-07-19 07:48] VITALS: BP 104/68; PULSE 70; RESP 18
[2023-07-19] MEDS ORDERED: REGADENOSON 0.4 MG/5 ML PF SYG IVP SCH (09:00)
[2023-07-19 11:54] VITALS: BP 113/78; PULSE 91; RESP 18
[2023-07-19] MEDS ORDERED: PANT40TA PO (15:19)
[2023-07-19] MEDS ORDERED: CLOP-31 PO (15:19)
[2023-07-19] MEDS ORDERED: ATOR40TA69 PO (15:19)
[2023-07-19] MEDS ORDERED: ASPI-1197 PO (15:19)
[2023-07-19] MEDS: PANTOPRAZOLE 40 MG/VIAL IVP SCH (16:33)
== END 2023-07-19 16:45 | disposition home or self-care (01) ==
LOC: EDH 12:32 → EDHIP 12:33 → 2BH 20:13 → 2DH 07-18 15:10
PROVIDERS: ADMIT Internal Medicine; ATTEND Internal Medicine
DX: R07.89 Other chest pain (principal); Z20.822 Contact with and (suspected) exposure to COVID-19; R00.2 Palpitations; E61.1 Iron deficiency; D72.829 Elevated white blood cell count, unspecified; I20.0 Unstable angina; G47.00 Insomnia, unspecified; I95.9 Hypotension, unspecified; F41.9 Anxiety disorder, unspecified; K21.9 Gastro-esophageal reflux disease without esophagitis; E78.00 Pure hypercholesterolemia, unspecified; Z79.899 Other long term (current) drug therapy; Z86.2 Personal history of diseases of the blood and blood-forming organs and certain disorders involving the immune mechanism; Z90.49 Acquired absence of other specified parts of digestive tract; Z90.710 Acquired absence of both cervix and uterus
CPT/HCPCS: 96374; 99285; 84443; 83735 ×3; 84484 ×3; 80053 ×2; 83880; 80305; 85025 ×3; 87040 ×2; 87804 ×2; 84439; 84481; 86140 ×2; 81001; 36415 ×3; 87635; 71045; 93005; 96376 ×2; 96361 ×3; 96375; 83540; 83550; 82550; 82728; 83690; 85651; 82607; 82746; 82533; 93306; 84145; 84100; 80048; G0378 ×49; J7030; C9113 ×2; J1885; J2785